=== PATIENT | male | born 1995 | race African-American/Black ===

== ENCOUNTER 2023-10-27 23:13 | Emergency (ER) | payer OTHER ==
[~2023-10-27] VITALS: Ht 167.6 cm; Wt 86.2 kg
[2023-10-28 01:18] VITALS: BP 146/87; TEMP 98; O2SAT 100
[2023-10-28] MEDS ORDERED: CEPH500C2 PO (01:22)
[2023-10-28] MEDS: CEPHALEXIN MONOHYDRATE 500 MG CAPSULE PO ONE (01:30)
[2023-10-28] MEDS: TDAP [DIPH/PERTUSSIS/TET] 0.5 ML VIAL IM ONE (01:30)
[2023-10-28] MEDS ORDERED: TDAP [DIPH/PERTUSSIS/TET] 0.5 ML VIAL IM ONE (01:31)
[2023-10-28] MEDS ORDERED: CEPHALEXIN MONOHYDRATE 500 MG CAPSULE PO ONE (01:31)
== END 2023-10-28 01:58 | disposition home or self-care (01) ==
LOC: ER 23:19
DX: S61.011A Laceration without foreign body of right thumb without damage to nail, initial encounter (principal); Z79.899 Other long term (current) drug therapy; Y04.0XXA Assault by unarmed brawl or fight, initial encounter; Y93.89 Activity, other specified; Y92.89 Other specified places as the place of occurrence of the external cause; Y99.8 Other external cause status
CPT/HCPCS: 90715

== ENCOUNTER 2024-11-07 01:11 | Emergency (ER) | payer OTHER ==
[~2024-11-07] VITALS: Ht 167.6 cm; Wt 90.7 kg
[~2024-11-07 01:11] MED LIST: CEPH500C2 PO
[2024-11-07] MEDS ORDERED: TETRAcaine 5 ML BOTTLE ONE (02:01)
[2024-11-07] MEDS: TETRACAINE HCL 0.5% OPHTALMIC 15 ML BOTTLE OP ONE (02:02)
[2024-11-07] MEDS ORDERED: FLUORESCEIN SODIUM OPHTH 1 EA STRIP ONE (03:00)
[2024-11-07] MEDS ORDERED: CIPR5DRO18 EACHEYE (03:07)
[2024-11-07 03:21] VITALS: BP 128/81; TEMP 98.7; O2SAT 99
[2024-11-07] MEDS ORDERED: FLUORESCEIN SODIUM OPHTH 1 EA STRIP OP ONE (03:30)
== END 2024-11-07 03:21 | disposition home or self-care (01) ==
LOC: ER 01:18
DX: S05.02XA Injury of conjunctiva and corneal abrasion without foreign body, left eye, initial encounter (principal); S05.01XA Injury of conjunctiva and corneal abrasion without foreign body, right eye, initial encounter; Z60.2 Problems related to living alone; Z79.899 Other long term (current) drug therapy; X58.XXXA Exposure to other specified factors, initial encounter; Y93.89 Activity, other specified; Y92.89 Other specified places as the place of occurrence of the external cause; Y99.8 Other external cause status